=== PATIENT | female | born 1935 | race Caucasian/White ===

== ENCOUNTER 2016-10-22 09:50 | Outpatient (CLI) | payer MEDICARE, OTHER ==
--- NOTE | 2016-10-23 11:37 | DEXA Report ---
DEXA SCAN: 10/22/2016 CLINICAL HISTORY: Postmenopausal. TECHNIQUE: Dual energy x-ray absorptiometry (DXA) was performed on a [employer] system. Regions measured are the AP spine, femoral neck, and, if needed, forearm. COMPARISON: None. In accordance with the International Society for Clinical Densitometry (ISCD) guidelines, data from previous exams may be reanalyzed using current recommendations and techniques. This is done to allow a more accurate basis for comparison with the current study. FINDINGS: The data for the lumbar spine is as follows: REGION BMD (g/cm/cm) T-SCORE Z-SCORE L1 0.863 -2.2 -0.4 L2 1.018 -1.5 0.3 L3 1.135 -0.5 1.3 L4 1.037 -1.4 0.5 TOTAL 1.023 -1.3 0.5 NOTE: All evaluable vertebrae are used for classification. The data for the hip is as follows: REGION BMD (g/cm/cm) T-SCORE Z-SCORE Neck 0.765 -2.0 0.2 TOTAL 0.785 -1.8 0.3 NOTE: The femoral neck or total proximal femur, whichever is lowest, is used for classification. IMPRESSION: THE WHO CLASSIFICATION BASED ON THE INTERNATIONAL REFERENCE STANDARD IS OSTEOPENIA. THE FRACTURE RISK IS INCREASED. RECOMMENDATION: Patients with diagnosis of osteoporosis or osteopenia should have regular bone mineral density assessment. For those eligible for Medicare, routine testing is allowed once every 2 years. Testing frequency can be increased for patients who have rapidly progressing disease or for those who are receiving medical therapy to restore bone mass. COMMENT: World Health Organization (WHO) definitions for osteoporosis and osteopenia: NORMAL BMD: T-score at -1.0 or higher, fracture risk is low. OSTEOPENIA BMD: T-score between -1.0 and -2.5, fracture risk is increased. OSTEOPOROSIS BMD: T-score at -2.5 or lower, fracture risk high. National Osteoporosis Foundation recommends: 1. Obtain adequate dietary calcium (at least 1200 mg per day) and vitamin D (400 -800 international units per day). 2. Participate, as appropriate, in regular weightbearing and muscle- strengthening exercise. 3. Avoid tobacco use and reduce alcohol and caffeine intake. 4. For more detailed information see the website at www.NOF.org. MTDD
== END 2016-10-22 09:51 | disposition home or self-care (01) ==
LOC: DI 09:50
PROVIDERS: ATTEND Physician Assistant
DX: M85.89 Other specified disorders of bone density and structure, multiple sites (principal)
CPT/HCPCS: 77080

== ENCOUNTER 2016-10-22 09:52 | Outpatient (CLI) | payer MEDICARE, OTHER ==
--- NOTE | 2016-10-23 07:35 | Mammography Report ---
DIGITAL BILATERAL SCREENING MAMMOGRAM: 10/22/2016 CLINICAL HISTORY: This is an 81-year-old female in for routine screening mammogram. Patient has no family history of breast cancer. Patient has had no prior breast surgeries. COMPARISON: 10/13/2006, 01/25/2008, 02/14/2009, 05/11/2010, 10/01/2011, 05/11/2013 TECHNIQUE: Craniocaudad and oblique lateral views of each breast were obtained with [facility] digital mammography. To compliment the exam, axillary exaggerated craniocaudad views were taken o f each breast. FINDINGS: Heterogeneously dense breasts are noted bilaterally. No significant clusters of calcification are seen. No significant masses are noted. No change is no [place]. IMPRESSION: BREASTS APPEAR RADIOGRAPHICALLY BENIGN. BIRADS CATEGORY 1 - NEGATIVE. RECOMMENDATIONS: Annual bilateral screening mammography. STANDARD QUALIFYING STATEMENTS 1. This examination was reviewed with the aid of Computer-Aided Detection (CAD). 2. A negative or benign imaging report should not delay biopsy if clinically suspicious findings are present. Consider surgical consultation if warranted. More than 5% of cancers are not identified by i ing. 3. Dense breasts may obscure an underlying neoplasm. JOB #: [id number] EXT JOB #:[id number]
== END 2016-10-22 09:53 | disposition home or self-care (01) ==
LOC: DI 09:52
PROVIDERS: ATTEND Physician Assistant
DX: Z12.31 Encounter for screening mammogram for malignant neoplasm of breast (principal)
CPT/HCPCS: 77067

== ENCOUNTER 2017-01-14 13:36 | Outpatient (CLI) | payer MEDICARE, OTHER ==
--- NOTE | 2017-01-14 19:46 | XRAY Report ---
THREE VIEW LUMBAR SPINE: 01/14/2017 CLINICAL INDICATION: Pain. AP, lateral, coned-down views of the lumbar spine demonstrate moderate degenerative disk and facet di sease, with degenerative anterolisthesis of L4 on L5 and L5 on S1, and moderate degenerative levoscol iosis. There is no evidence of compression fracture. The bowel gas pattern is unremarkable. IMPRESSION: MODERATE DEGENERATIVE CHANGES, WITH DEGENERATIVE ANTEROLISTHESIS AND LEVOSCOLIOSIS. JOB #: [id number] EXT JOB #:[id number]
== END 2017-01-14 13:37 | disposition home or self-care (01) ==
LOC: DI 13:36
PROVIDERS: ATTEND Physician Assistant
DX: M54.41 Lumbago with sciatica, right side (principal)
CPT/HCPCS: 72100

== ENCOUNTER 2018-03-21 09:59 | Outpatient (CLI) | payer MEDICARE, OTHER ==
--- NOTE | 2018-03-22 21:34 | MRI Report ---
Reason: LOW BACK PAIN Procedure Date: 03/21/2018 Accession Number: [id number] / [id number] Procedure: MRI - Lumbar Spine W/O CPT Code: FULL RESULT: EXAM: MRI LUMBAR SPINE WITHOUT CONTRAST. EXAM DATE: 03/21/2018 11:13 AM. CLINICAL HISTORY: Low back pain. COMPARISON: Lumbar radiograph 01/14/2017. TECHNIQUE: Multiplanar, multisequence T1-weighted and fluid-sensitive sequences of the lumbar spine from T12 to S1 without contrast. Other: None. FINDINGS: Spinal Canal: The conus terminates at L2. The conus medullaris and cauda equina are unremarkable. Alignment: 8 degrees levoconvex curvature centered at L3, as measured between L1-L2 and L4-L5. There is 4-5 mm retrolisthesis of L2 on L3, 5 mm anterolisthesis of L4 on L5, 7 mm anterolisthesis of L5 on S1. Bone Marrow: Five [id number]-hus-[id number] lumbar vertebral bodies are assumed. There is diffuse marrow edema along the upper L2 endplate associated with approximately 40-50% L2 vertebrae height loss. Disk Levels/Facets: T12-L1: Disk desiccation. No significant canal or foraminal narrowing. L1-L2: Disk desiccation. Moderate disk height loss. Annular bulge. L2 compression fracture with retropulsed posterior superior endplate effaces the ventral CSF space, anterior posterior canal diameter measures 8 mm. Mild bilateral foraminal narrowing. No apparent impingement of the conus. L2-L3: Severe disk height loss. Retrolisthesis. Bilateral facet arthropathy. Bilateral foraminal disk osteophyte complex with mild to moderate right, mild left foraminal narrowing. L3-L4: Annular bulge. Bilateral facet arthropathy. Mild bilateral foraminal narrowing. Mild subarticular narrowing. L4-L5: Anterolisthesis. Disk desiccation. Bilateral facet arthropathy and ligament flavum thickening. Mild subarticular narrowing. Mild canal narrowing. Mild left greater than right foraminal narrowing. L5-S1: Anterolisthesis. Moderate disk height loss. Bilateral facet arthropathy and ligament flavum thickening. Mild subarticular narrowing. Moderate to severe left, moderate right foraminal narrowing could be correlated with left greater than right L5 radiculopathy. Musculature: Normal. No edema or fatty atrophy. Other: The partially visualized retroperitoneum is unremarkable. IMPRESSION: 1. Recent (acute/subacute) 40-50% superior compression fracture of L2 with minimal retropulsed posterior superior endplate. Moderate stenosis at L1-L2 without impingement of the conus. 2. An 8 degrees levoconvex curvature of the lumbar spine apex at L3. Grade 1 retrolisthesis at L2-L3, grade 1 anterolisthesis at L4-L5 and L5-S1. No evidence for pars defect. 3. At L2-L3, mild to moderate right and mild left foraminal narrowing. 4. At L3-L4, mild bilateral foraminal narrowing and mild subarticular narrowing. 5. At L4-L5, mild left greater than right foraminal narrowing. 6. At L5-S1, moderate to severe left, moderate right foraminal narrowing could be correlated with left greater than right L5 radiculopathy. Comment: The following findings are so common in adults without low back pain that while we report their presence, they must be interpreted with caution and in the context of the clinical situation. (Reference Dariank et al, Spine 2001) Prevalence of findings in patients without low back pain: Disk degeneration (any evidence): 92% Disk desiccation/T2 signal loss: 83% Disk height loss: 56% Disk bulge: 64% Disk protrusion: 32% Annular tear/high intensity zone: 38% RADIA
== END 2018-03-21 10:00 | disposition home or self-care (01) ==
LOC: DI 09:59
PROVIDERS: ATTEND Nurse Practitioner Family
DX: M48.56XA Collapsed vertebra, not elsewhere classified, lumbar region, initial encounter for fracture (principal); M51.36 Other intervertebral disc degeneration, lumbar region; M43.16 Spondylolisthesis, lumbar region; M41.9 Scoliosis, unspecified; M51.37 Other intervertebral disc degeneration, lumbosacral region; M43.17 Spondylolisthesis, lumbosacral region; M47.9 Spondylosis, unspecified
CPT/HCPCS: 72148

== ENCOUNTER 2018-03-29 10:25 | Emergency (ER) | payer MEDICARE, OTHER ==
[2018-03-29 11:29] LABS: BASOPHILS # (AUTO) 0.1 10^3/uL (0.0-0.1); BASOPHILS % (AUTO) 0.9 %; EOSINOPHILS # (AUTO) 0.2 10^3/uL (0.0-0.7); EOSINOPHILS % (AUTO) 2.6 %; LYMPHOCYTES # (AUTO) 0.7 10^3/uL (1.5-3.5); LYMPHOCYTES % (AUTO) 11.9 %; MEAN CORPUSCULAR HEMOGLOBIN 30.2 pg (27.0-31.0); MEAN CORPUSCULAR VOLUME 86.1 fL (81.0-99.0); MEAN PLATELET VOLUME 8.6 fL (7.9-10.8); MONOCYTES # (AUTO) 0.5 10^3/uL (0.0-1.0); NEUTROPHILS # (AUTO) 4.5 10^3/uL (1.5-6.6); NEUTROPHILS % (AUTO) 75.6 %; PLT - PLATELET COUNT 186 10^3/uL (130-450); RED BLOOD COUNT 4.31 10^6/uL (4.20-5.40); WHITE BLOOD COUNT 5.9 x10^3/uL (4.8-10.8)
[2018-03-29 11:43] LABS: ALBUMIN 4.2 g/dL (3.2-5.5); ALBUMIN/GLOBULIN RATIO 1.4 (1.0-2.2); BILIRUBIN,TOTAL 0.7 mg/dL (0.2-1.0); CALCIUM 9.3 mg/dL (8.5-10.3); CREATININE 0.9 mg/dL (0.4-1.0); TOTAL PROTEIN 7.1 g/dL (6.7-8.2)
[2018-03-29] MEDS ORDERED: ACETAMINOPHEN 1,000 MG/100 ML 100 ML IV STA (12:14)
[2018-03-29 12:37] LABS: BILIRUBIN,URINE NEGATIVE (NEGATIVE); CLARITY,URINE CLEAR (CLEAR); GLUCOSE, URINE (UA) NEGATIVE (NEGATIVE); KETONES,URINE (UA) 15 mg/dL (NEGATIVE); LEUKOCYTE ESTERASE, URINE NEGATIVE (NEGATIVE); NITRITE,URINE NEGATIVE (NEGATIVE); OCCULT BLOOD,URINE NEGATIVE (NEGATIVE); PROTEIN,URINE NEGATIVE (NEGATIVE); UROBILINOGEN,URINE 0.2 (NORMAL) E.U./dL (NORMAL)
--- NOTE | 2018-03-29 12:59 | ED Physician Documentation ---
History of Present Illness - Stated complaint Stated Complaint: AB/BACK/R SHOULDER PX - Chief complaint Chief Complaint: Abd Pain - Additonal information Additional information: hx from pt 83 female has had back pain fro a month intiially lower right now all the way to shoulder saw PMD nurmeous times rx NSAID and mm relaxant and had some injections and had a MRI which showed a L2 superior comp fx and degen changes and was referred to [place] no numbness weakness incont or radiculopathy then more recently has developed RLQ pain no fever no [place] some diarrhea after taking a laxative no urinary sx no bloody stool or urine Review of Systems Constitutional: denies: Fever Cardiac: denies: Chest pain / pressure Respiratory: denies: Dyspnea GI: reports: Abdominal Pain. denies: Nausea, Vomiting, Hematemesis, Bloody / black stool : denies: Dysuria, Incontinent, Hematuria Musculoskeletal: reports: Back pain Endocrine: denies: Easy bruising / bleeding Immunocompromised: denies: Immunocompromised PD PAST MEDICAL HISTORY - Past Medical History Past Medical History: Yes Cardiovascular: Hypertension, High cholesterol Psych: Anxiety - Past Surgical History Past Surgical History: No - Present Medications Home Medications: Ambulatory Orders Medication Instructions Recorded Confirmed Dicyclomine [Bentyl] 10 mg PO Q8H PRN #20 capsule 03/29/18 Levothyroxine [Synthroid] 03/29/18 Meloxicam 03/29/18 Methocarbamol 03/29/18 Omeprazole 03/29/18 Polyethylene Glycol 3350 [Miralax] 17 gm PO DAILY #14 packet 03/29/18 raNITIdine [Zantac] 150 mg PO DAILY 03/29/18 03/29/18 - Allergies Allergies/Adverse Reactions: Allergies Allergy/AdvReac Type Severity Reaction Status Date / Time cephalexin [From Keflex] Allergy Unknown Verified 03/29/18 10:37 - Social History Does the pt smoke?: No Smoking Status: Never smoker Does the pt drink ETOH?: Yes Does the pt have substance abuse?: No - Immunizations Immunizations are current?: Yes PD ED PE NORMAL - Vitals Vital signs reviewed: Yes - Cardiac Cardiac: RRR - Respiratory Respiratory: No respiratory distress, Clear bilaterally - Abdomen Abdomen: Soft, Other (TTP RLQ s rebound or guarding, no palp hernia, no pulsatile mass) - Derm Derm: Normal color - Neuro Neuro: Alert and oriented X 3 Results - Vitals Vitals: Vital Signs - 24 hr 03/29/18 10:32 Temperature 36.6 C Heart Rate 78 Respiratory 18 Rate Blood Pressure 137/89 H O2 Saturation 99 Oxygen O2 Source Room air - Labs Labs: Laboratory Tests 03/29/18 03/29/18 03/29/18 11:20 11:20 12:30 WBC 5.9 RBC 4.31 Hgb 13.0 Hct 37.1 MCV 86.1 MCH 30.2 MCHC 35.0 RDW 13.0 Plt Count 186 MPV 8.6 Neut # (Auto) 4.5 Lymph # (Auto) 0.7 L [place] # (Auto) 0.5 Eos # (Auto) 0.2 Baso # (Auto) 0.1 Absolute Nucleated RBC 0.00 Nucleated RBC % 0.0 Sodium 127 L Potassium 3.4 L Chloride 95 L Carbon Dioxide 24 Anion Gap 8.0 BUN 16 Creatinine 0.9 Estimated GFR (MDRD) 60 L Glucose 106 H Calcium 9.3 Total Bilirubin 0.7 AST 18 ALT 11 Alkaline Phosphatase 77 Total Protein 7.1 Albumin 4.2 Globulin 2.9 Albumin/Globulin Ratio 1.4 Lipase 29 Urine Color YELLOW Urine Clarity CLEAR Urine pH 6.0 Ur Specific [place] 1.020 Urine Protein NEGATIVE Urine Glucose (UA) NEGATIVE Urine Ketones 15 H Urine Occult Blood NEGATIVE Urine Nitrite NEGATIVE Urine Bilirubin NEGATIVE Urine Urobilinogen 0.2 (NORMAL) Ur Leukocyte Esterase NEGATIVE Ur Microscopic Review NOT INDICATED Urine Culture Comments NOT INDICATED - Rads (name of study) CT AP Radiology: See rad report (no acute process - normal appendix, normal GB kidney pancreas, no AAA, no SBO/perf/colitis) Departure - Departure Disposition: 01 Home, Self Care Clinical Impression: Abdominal pain Qualifiers: Abdominal location: right lower quadrant Qualified Code(s): R10.31 - Right lower quadrant pain Condition: Good Instructions: ED Abdominal Pain Unkn Cause Follow-Up: Barbi Parra PA [Primary Care Provider] - Prescriptions: Dicyclomine [Bentyl] 10 mg PO Q8H PRN #20 capsule PRN Reason: Stomach cramps Polyethylene Glycol 3350 [Miralax] 17 gm PO DAILY #14 packet Comments: All your tests came back fine except slightly low sodium and potassium the kidney liver and pancreas function were fine The urine sample did not show infection nor blood to suggest a kidney stone. And the CT showed no appendicitis - also normal liver (except a tiny cyst) kidneys, pancreas, no aneurysm, no bowel blockage perforation or infection. It does sound like you have had some constipation recently - likely due to your pain medications - and that can cause stretch and pain of the right sided colon and might be part of the reason you have been hurting. But the work up is reassuring and you do not need antibiotics or surgery and I feel it is safe for you to go home You can take tylenol and bentyl as needed for the pain. Try miralax to soften the stools and prevent constipation. Please follow up with your PMD for a recheck later this week And please get your sodium and potassium checked at that time Also i did look at your MRi report and you have a aubacute compression fracture of lumbar spine #2 - this does not need surgery but likely explains some of the back pain you have been suffering from
--- NOTE | 2018-03-29 14:13 | CT Report ---
Reason: rlq abd pain Procedure Date: 03/29/2018 Accession Number: [id number] / [id number] Procedure: CT - Abdomen/Pelvis W/O CPT Code: FULL RESULT: EXAM: CT ABDOMEN AND PELVIS EXAM DATE: 03/29/2018 01:50 PM. CLINICAL HISTORY: Rlq abd pain. COMPARISONS: LUMBAR SPINE W/O 03/21/2018 10:50 AM. TECHNIQUE: Routine helical CT imaging was performed through the abdomen and pelvis. IV contrast: . Enteric contrast: No. Reconstructions: Coronal and sagittal. In accordance with CT protocol optimization, one or more of the following dose reduction techniques were utilized for this exam: automated exposure control, adjustment of mA and/or KV based on patient size, or use of iterative reconstructive technique. FINDINGS: Lung Bases: Unremarkable. Liver: Small 7 mm hypodense lesion in the right hepatic lobe, which is too small to characterize. Statistically, this could represent a cyst or hemangioma. The liver is otherwise unremarkable. Gallbladder/Bile Ducts: Unremarkable. Spleen: Normal. Pancreas: Normal. Adrenal Glands: Normal. Kidneys: No hydronephrosis or nephrolithiasis. Peritoneal Cavity/Bowel: Small hiatal hernia. Nonobstructive bowel gas pattern. The appendix is normal. Pelvic Organs: Normal. The bladder and visualized pelvic organs are within normal limits. Vasculature: Calcified plaques throughout the abdominal aorta. There is ectasia of the infrarenal abdominal aorta measuring 2.4 cm in diameter (image 35 of series 3). Bones: The bones are osteopenic. Redemonstrated compression deformity of the L2 vertebral body with retropulsion of the superior endplate into the spinal canal. No significant change from the prior MRI given differences in technique. There is also redemonstration of grade 1 anterolisthesis of L5 on S1 measuring approximately 6 mm. There is at least moderate multilevel degenerative facet arthropathy throughout the lumbar spine, most significant at L5-S1. Near complete loss of the L5-S1 disk space. Degenerative disk disease also seen on multiple levels. Levoconvex curvature of the lumbar spine centered at L2. Other: None. IMPRESSION: Nonobstructive bowel gas pattern. Normal appendix. Small hiatal hernia. No hydronephrosis or nephrolithiasis. Chronic compression deformity at L2, as described. Additional multilevel degenerative changes of the lumbar spine described. RADIA
[2018-03-29] MEDS ORDERED: POTASSIUM CHLORIDE 20 MEQ TABLET PO STA (15:26)
[2018-03-29 15:52] VITALS: BP 156/68
== END 2018-03-29 16:44 | disposition home or self-care (01) ==
LOC: ED 10:25
DX: R10.31 Right lower quadrant pain (principal); S32.029A Unspecified fracture of second lumbar vertebra, initial encounter for closed fracture; X58.XXXA Exposure to other specified factors, initial encounter; I10 Essential (primary) hypertension; E78.00 Pure hypercholesterolemia, unspecified; E87.6 Hypokalemia
CPT/HCPCS: 36415; 74176; 80053; 81003; 83690; 85025; 96365; 99283; A9270; J0131; 81001; 87086

== ENCOUNTER 2019-05-27 08:38 | Outpatient (CLI) | payer MEDICARE, OTHER ==
--- NOTE | 2019-05-31 13:11 | Mammography Report ---
Reason: ROUTINE MAMMO Procedure Date: 05/27/2019 Accession Number: [id number] / [id number] Procedure: JOHN - Screening Mammo w/Sylvester CPT Code: Final Report FULL RESULT: EXAM: Screening Mammo w/Sylvester DATE: 05/27/2019 9:15 AM CLINICAL HISTORY: Screening encounter. History of late childbearing. TECHNIQUE: (B) - Bilateral CC, laterally exaggerated CC, MLO views were obtained. COMPARISON: 10/22/2016 through 05/11/2010. PARENCHYMAL PATTERN: (D) - The breast(s) demonstrate(s) heterogeneously dense fibroglandular parenchyma. FINDINGS: There are no suspicious masses, calcifications, or areas of distortion. IMPRESSION: Negative examination. BI-RADS category 1. RECOMMENDATION: (ANNUAL) - Recommend routine annual screening mammography. BI-RADS CATEGORY: (1) - Negative. STANDARD QUALIFYING STATEMENTS: 1. This examination was not reviewed with the aid of Computer-Aided Detection (CAD). 2. A negative or benign imaging report should not preclude biopsy if clinically suspicious findings are present. 3. Dense breasts may obscure an underlying neoplasm. 4. This examination was reviewed with the aid of 3D breast imaging (tomosynthesis).
== END 2019-05-27 08:39 | disposition home or self-care (01) ==
LOC: DI 08:38
PROVIDERS: ATTEND Registered Nurse
DX: Z12.31 Encounter for screening mammogram for malignant neoplasm of breast (principal)
CPT/HCPCS: 77063; 77067

== ENCOUNTER 2019-05-27 08:39 | Outpatient (CLI) | payer MEDICARE, OTHER ==
--- NOTE | 2019-06-02 09:14 | DEXA Report ---
Reason: ASYMPTOMATIC POST MENOPAUSAL STATE Procedure Date: 05/27/2019 Accession Number: [id number] / [id number] Procedure: DEX - Dexa Spine and/or Hip CPT Code: Final Report FULL RESULT: EXAM: Dexa Spine and/or Hip DATE: 05/27/2019 9:30 AM CLINICAL HISTORY: ASYMPTOMATIC POST MENOPAUSAL STATE TECHNIQUE: Dual energy x-ray absorptiometry (DXA) was performed on a [employer] System. Regions measured are the AP Spine, femoral neck, and if needed forearm. COMPARISON: 10/22/2016. In accordance with the International Society for Clinical Densitometry (ISCD) guidelines, data from previous exams may be reanalyzed using current recommendations and techniques. This is done to allow a more accurate basis for comparison with the current study. FINDINGS: The data for the lumbar spine is as follows: BMD (g/cm/cm) T-SCORE Z-SCORE REGION L1 0.977 -1.3 0.6 L2 1.376 1.5 3.3 L3 1.084 -1.0 0.9 L4 1.075 -1.0 0.8 TOTAL 1.132 -0.4 1.5 NOTE: All evaluable vertebrae are used for classification The data for the hip is as follows: BMD (g/cm/cm) T-SCORE Z-SCORE REGION Neck 0.698 -2.4 -0.1 TOTAL 0.783 -1.8 0.4 NOTE: The femoral neck or total proximal femur, whichever is lowest, is used for classification. DXA RESULTS SUMMARY: Spine SCAN DATE A[age] BMD CHANGE VS CHANGE VS PREVIOUS PREVIOUS % [birth year][age] 1[age]089 0.066* 6.5* 10[birth year]22/2016 [age] 1[age]023 * Denotes significant change at the 95% confidence level. Denotes dissimilar scan types or analysis methods. DXA RESULTS SUMMARY: Hip SCAN DATE AGE BMD CHANGE VS CHANGE VS PREVIOUS PREVIOUS % 05/27/2019 84.1 0.783 -0.002 -0.3 [birth year]2016 [age] 0.785 * Denotes significant change at the 95% confidence level. Denotes dissimilar scan types or analysis methods. IMPRESSION: THE WHO CLASSIFICATION BASED ON THE INTERNATIONAL REFERENCE STANDARD IS OSTEOPENIA. THE FRACTURE RISK IS INCREASED. Interval decrease in bone density is statistically significant. RECOMMENDATION: Patients with diagnosis of osteoporosis or osteopenia should have regular bone mineral density assessment. For those eligible for Medicare, routine testing is allowed once every 2 years. Testing frequency can be increased for patients who have rapidly progressing disease or for those who are receiving medical therapy to restore bone mass. COMMENT: World Health Organization (WHO) definitions for osteoporosis and osteopenia: NORMAL BMD: T-score at -1.0 or higher, fracture risk is low OSTEOPENIA BMD: T-score between -1.0 and -2.5, fracture risk is increased. OSTEOPOROSIS BMD: T-score at -2.5 or lower, fracture risk is high. National Osteoporosis Foundation recommends: 1. Obtain adequate dietary calcium (at least 1200 mg per day) and vitamin D (400-800 international units per day). 2. Participate, as appropriate, in regular weightbearing and muscle-strengthening exercise. 3. Avoid tobacco use and reduce alcohol and caffeine intake. 4. For more detailed information see the website at www.NOF.org.
== END 2019-05-27 08:40 | disposition home or self-care (01) ==
LOC: DI 08:39
PROVIDERS: ATTEND Registered Nurse
DX: M85.88 Other specified disorders of bone density and structure, other site (principal)
CPT/HCPCS: 77080

== ENCOUNTER 2019-06-01 09:41 | Outpatient (CLI) | payer MEDICARE, OTHER ==
[2019-06-01 17:44] LABS: ALBUMIN 4.3 g/dL (3.2-5.5); ALBUMIN/GLOBULIN RATIO 1.7 (1.0-2.2); ALKALINE PHOSPHATASE 62 IU/L (42-121); ALT ALANINE AMINOTRANSFERASE 17 IU/L (10-60); AST ASPARTATE AMINOTRANSFERASE 21 IU/L (10-42); BILIRUBIN,TOTAL 0.9 mg/dL (0.2-1.0); BUN - BLOOD UREA NITROGEN 26 mg/dL (6-20); CALCIUM 9.4 mg/dL (8.5-10.3); CARBON DIOXIDE - CO2 27 mmol/L (21-32); CHLORIDE 101 mmol/L (101-111); CHOL/HDL RATIO 3.1 (<4.4); CHOLESTEROL 232 mg/dL; CREATININE 0.8 mg/dL (0.4-1.0); GFR - MDRD 68 (>89); GLUCOSE 98 mg/dL (70-100); HDL CHOLESTEROL 74 mg/dL; LDL CHOLESTEROL,CALCULATED 145 mg/dL; SODIUM 137 mmol/L (135-145); TOTAL PROTEIN 6.9 g/dL (6.7-8.2); VLDL CHOLESTEROL 13 mg/dL
[2019-06-01 17:51] LABS: THYROID STIMULATING HORMONE 0.31 uIU/mL (0.34-5.60)
[2019-06-01 17:52] LABS: FREE T4 (FREE THYROXINE) 0.95 ng/dL (0.58-1.64)
== END 2019-06-01 09:42 | disposition home or self-care (01) ==
LOC: LAB.S 09:41
PROVIDERS: ATTEND Nurse Practitioner Family
DX: E03.9 Hypothyroidism, unspecified (principal); E78.5 Hyperlipidemia, unspecified
CPT/HCPCS: 36415; 80053; 80061; 83721; 84439; 84443

== ENCOUNTER 2021-06-19 10:20 | Outpatient (CLI) | payer MEDICARE, OTHER ==
--- NOTE | 2021-06-19 10:45 | CT Report ---
PROCEDURE: HEAD WO INDICATIONS: VERTIGO, OSTEOPENIA TECHNIQUE: Noncontrast 4.5 mm thick angled axial sections acquired from the foramen magnum to the vertex. For r adiation dose reduction, the following was used: automated exposure control, adjustment of mA and/or kV according to patient size. COMPARISON: None. FINDINGS: Image quality: Excellent. CSF spaces: Basal cisterns are patent. No extra-axial fluid collections. Ventricles are normal in size and shape. Brain: Mild global cerebral volume loss and chronic microvascular ischemic change. No midline shift. No intracranial masses or hemorrhage. Pitt-white matter interface is normal. Skull and face: Calvarium and visualized facial bones are intact, without suspicious lesions. Sinuses: Chronic appearing right maxillary sinus opacification. Remaining partially visualized parana rod sinuses and mastoid air cells. IMPRESSION: No acute intracranial abnormality. Mild global cerebral volume loss and chronic microvascular ischemic change. Chronic appearing right maxillary opacification. Reviewed by: Kee Lacy MD on 06/19/2021 10:44 AM [facility] Approved by: Kee Lacy MD on 06/19/2021 10:44 AM [facility] Station ID: [id number]
== END 2021-06-19 10:21 | disposition home or self-care (01) ==
LOC: DI 10:20
PROVIDERS: ATTEND Registered Nurse
DX: R42 Dizziness and giddiness (principal); M85.88 Other specified disorders of bone density and structure, other site

== ENCOUNTER 2021-06-21 14:55 | Outpatient (CLI) | payer MEDICARE ==
--- NOTE | 2021-06-21 15:50 | DEXA Report ---
PROCEDURE: Dexa Spine and/or Hip INDICATIONS: VERTIGO, OSTEOPENIA TECHNIQUE: Dual energy x-ray absorptiometry (DXA) was performed on a [employer] System. Regions measur ed are the AP Spine, femoral neck, and if needed forearm. COMPARISON: May 27, 2019 FINDINGS: Lumbar Spine: Bone Mineral Density 1.064 g/cm/cm,T score -1.0, normal Left Femoral Neck: Bone Mineral Density 0.670 g/cm/cm, T score -2.6, osteoporosis Total: Bone Mineral Density 0.776 g/cm/cm, T score -1.8, osteopenia. (T score greater or equal to -1.0: NORMAL) (T score from -1.1 to -2.4: OSTEOPENIA) (T score less than or equal to -2.5 to: OSTEOPOROSIS) Impression: Bone mineral density as detailed above. Patients with diagnosis of osteoporosis or osteopenia should have regular bone mineral density assess ment. For those eligible for Medicare, routine testing is allowed once every 2 years. Testing frequ ency can be increased for patients who have rapidly progressing disease or for those who are receivin g medical therapy to restore bone mass. Reviewed by: Juancarlos Ortiz MD on 06/21/2021 3:49 PM PST Approved by: Juancarlos Ortiz MD on 06/21/2021 3:49 PM PST Station ID: [id number]
== END 2021-06-21 14:56 | disposition home or self-care (01) ==
LOC: DI 14:55
PROVIDERS: ATTEND Registered Nurse
DX: M81.0 Age-related osteoporosis without current pathological fracture (principal)

== ENCOUNTER 2023-03-17 09:58 | Outpatient (CLI) | payer MEDICARE, OTHER ==
[2023-03-17 16:18] LABS: THYROID STIMULATING HORMONE 3.05 uIU/mL (0.34-5.60)
== END 2023-03-17 09:59 | disposition home or self-care (01) ==
LOC: LAB.S 09:58
PROVIDERS: ATTEND Internal Medicine
DX: E03.9 Hypothyroidism, unspecified (principal)
CPT/HCPCS: 36415; 84439; 84443; 84481

== ENCOUNTER 2024-01-07 07:35 | Outpatient (CLI) | payer MEDICARE, OTHER ==
[2024-01-07 15:23] LABS: BASOPHILS # (AUTO) 0.1 10^3/uL (0.0-0.1); BASOPHILS % (AUTO) 1.2 %; EOSINOPHILS # (AUTO) 0.2 10^3/uL (0.0-0.7); HCT - HEMATOCRIT 37.8 % (37.0-47.0); HGB - HEMOGLOBIN 12.1 g/dL (12.0-16.0); LYMPHOCYTES # (AUTO) 0.9 10^3/uL (1.5-3.5); LYMPHOCYTES % (AUTO) 15.6 %; MEAN CORPUSCULAR HEMOGLOBIN 30.9 pg (27.0-31.0); MEAN CORPUSCULAR VOLUME 96.4 fL (81.0-99.0); MEAN PLATELET VOLUME 12.6 fL (7.9-10.8); MONOCYTES # (AUTO) 0.5 10^3/uL (0.0-1.0); MONOCYTES % (AUTO) 7.9 %; NEUTROPHILS # (AUTO) 4.2 10^3/uL (1.5-6.6); NEUTROPHILS % (AUTO) 71.1 %; PLT - PLATELET COUNT 163 10^3/uL (130-450); RED BLOOD COUNT 3.92 10^6/uL (4.20-5.40); RED CELL DISTRIBUTION WIDTH 13.3 % (12.0-15.0)
[2024-01-07 16:16] LABS: THYROID STIMULATING HORMONE 4.96 uIU/mL (0.34-5.60)
[2024-01-07 16:22] LABS: FERRITIN 103.4 ng/mL (11.0-306.8)
[2024-01-07 16:47] LABS: ALBUMIN 4.1 g/dL (3.2-5.5); ALBUMIN/GLOBULIN RATIO 1.8 (1.0-2.2); BILIRUBIN,TOTAL 0.5 mg/dL (0.2-1.0); CALCIUM 9.4 mg/dL (8.5-10.3); CREATININE 0.9 mg/dL (0.6-1.3); POTASSIUM 4.3 mmol/L (3.5-4.5); TOTAL PROTEIN 6.4 g/dL (6.4-8.9)
[2024-01-07 21:38] LABS: ESTIMATED AVERAGE GLUCOSE 103 mg/dL (70-100); HEMOGLOBIN A1c% 5.2 % (4.27-6.07)
== END 2024-01-07 07:36 | disposition home or self-care (01) ==
LOC: LAB.S 07:35
PROVIDERS: ATTEND Internal Medicine
DX: I10 Essential (primary) hypertension (principal); R53.83 Other fatigue; Z13.228 Encounter for screening for other metabolic disorders; E03.9 Hypothyroidism, unspecified
CPT/HCPCS: 36415; 80053; 82728; 83036; 83540; 84439; 84443; 84466; 85025